=== PATIENT | male | born 1960 ===

== ENCOUNTER → 2017-10-26 | Day surgery (SDC) | payer OTHER ==
[~2017-10-26] VITALS: Ht 182.9 cm; Wt 94.3 kg
--- NOTE | 2017-10-26 16:16 | Operative Report ---
Operative/Inv Procedure Report Surgery Date: 10/26/17 Name of Procedure: left elbow: anterior transposition of ulnar nerve Synovectomy left shoulder: Revision rotator cuff repair loose body removal Pre-Operative Diagnosis: cubital tunnel syndrome retear of rotator cuff Post-Operative Diagnosis: same Estimated Blood Loss: scant Surgeon/Bond Analyst: Cecil CERON,Karlo Torres MD Anesthesia: general endotracheal tube Operative/Procedure Note Note: Left elbow anterior transposition of the ulnar nerve to a subcutaneous position with synovectomy of elbow Procedure the patient was brought to the operating room placed on the table in the supine position the left upper extremity was prepped and draped with Betadine solution medication Esmark bandage and pneumatic tourniquet we used a timeout was called a curvilinear incision was made just behind the medial epicondylar prominence of the left elbow dissection was taken down local cutaneous nerves were carefully protected polar cautery was used exclusively for hemostasis the ulnar nerve was seen to be half in and half out of the cubital tunnel careful microdissection was used using DeBakey forceps and loops to free the ulnar nerve from the surrounding scar tissue and free it completely from the ulnar groove from which it had ripped its way out he was surrounded by heavy scar we elbow was opened at this point and synovectomy was performed quite a bit of reactive tissue was seen we irrigated thoroughly and made sure. The elbow was closed at the cubital at the ulnohumeral articulation before transposing anteriorly we released the superior epitrochlear ligament because it would be leaning on the nerve we made sure the nerve had a very smooth course we did release some of the e[employer] of the flexor mass of the nerve had a smooth course the vena comitans and splitting off branches were protected we irrigated thoroughly and let the tourniquet down and controlled bleeders again we now made a fibrofatty tunnel using 4 sutures of 2-0 Vicryl through the edge of the epicondylar origin of the flexor mass to the fat flap versus full-thickness this left us with a beautiful smooth gliding path for the ulnar nerve we irrigated again and closed subcutaneously with Monocryl the skin was closed with clips provisional dressing was applied and we turned to the shoulder Left shoulder revision rotator cuff repair A new prep and drape was now performed for the shoulder using the special headholder all acral prominence were padded care was taken with the neck exam was remarkable for significant anterior instability which was not present in this patient before. He has had trauma and is unable to elevate the arm without excruciating pain he has weakness his neurologic exam has also been remarkable EMGs taken today were normal however he has had plexus-like symptoms since his recent injury he was initially repaired by us in June of last year The old portal posteriorly was used to gain access to the shoulder inion to the shoulder he had a Hill-Sachs lesion with large chunks of bone and cartilage off the posterior superior aspect of the humeral head he did not have a Bankart lesion and his subscapularis was intact although it was much reactive scar tissue in the front of the shoulder this did look like a dislocated shoulder Loose body removal we had to remove many free chunks of articular surface cartilage from the posterior superior lesion along with bone and scar tissue This was done using hand and motorized instrumentation Rotator cuff repair we now examined the cuff from below so that was torn posteriorly created good-quality insertion site this was posterior to oral repair we placed 2.8 mm [employer] all suture anchors into the prepared bone of the posterior facet of the greater tuberosity this was a tear of the infraspinatus and part of the teres minor we had good pullback control we passed sutures using Accu Pass direct device then tied these down securely we were very pleased with the repair this also improved stability in retrospect he had a anterior dislocation/subluxation via the classic Neer posterior mechanism we had repaired this at this point The portals were closed in standard fashion and dressings applied he returned to recovery he'll be discharged home with shoulder sheet Dr. Torres will be seeing him in [place] this coming week or giving him Percocet for pain Karlo Jacob M.D.
== END ==
LOC: STSP 10-25 13:30 → EDSTATUS 10-25 13:30 → STS 02:55 → NEU 08:30 → STS 13:30
DX: S42.292A Other displaced fracture of upper end of left humerus, initial encounter for closed fracture (principal); G56.22 Lesion of ulnar nerve, left upper limb; M25.312 Other instability, left shoulder; M24.012 Loose body in left shoulder; G54.0 Brachial plexus disorders; X58.XXXA Exposure to other specified factors, initial encounter
CPT/HCPCS: 95886; 95909; J0131; J0171; J0690; J2250